=== PATIENT | female | born 1940 | race Caucasian/White ===

== ENCOUNTER → 2016-10-21 | Outpatient (CLI) | payer MEDICARE, OTHER ==
[~2016-10-21] MED LIST: ARTHRITIS PAIN325 M1 PO; CALCIUM 600 + V1 TAB PO; CENTRUM SILVER1 TA1 PO; CENTRUM SILVER1 TAB PO; CETIRIZINE10 MG PO; COZAAR 50MG50 MG/TAB PO; ENALAPRIL10 MG PO; LEVOTHROID0.075 MG PO; PRILOSEC 20MG20 MG PO; SINGULAIR10 MG PO; SYNTHROID0.088 MG/T PO; TUSS PO; ULTRAM 50MG TAB50 MG PO; ZITHROMAX500 M2 PO; ZYRTEC 10MG10 MG PO
== END ==
LOC: MC.RAD 10:46
DX: Z12.31 Encounter for screening mammogram for malignant neoplasm of breast (principal)

== ENCOUNTER → 2017-12-15 | Outpatient (CLI) | payer MEDICARE, OTHER | LOC: MC.RAD 09:51 | DX: Z12.31 Encounter for screening mammogram for malignant neoplasm of breast (principal) ==